=== PATIENT | male | born 1980 | race Caucasian/White ===

== ENCOUNTER → 2018-07-24 | Outpatient (CLI) | payer BC ==
[2016-04-15 07:26] VITALS: BP 134/70
[~2018-07-24] MED LIST: LOSA50TA86 PO; PANT20TA58 PO
--- NOTE | 2018-07-24 18:21 | RAD ---
EXAM: AP, lateral and open-mouth odontoid views of the cervical spine DATE: 07/24/2018 12:00 AM CLINICAL HISTORY: NECK PAIN, HEADACHES COMPARISON: None available. FINDINGS: On the lateral view, the cervical spine is imaged from the skull base to C7. Vertebral body heights are preserved. Trace C4-5, C5-6 intervertebral disc height loss. Mild straightening of the normal cervical lordosis. No spondylolisthesis. There is no offset of the lateral masses of C1 on C2. Normal predental space. No significant prevertebral soft tissue swelling. IMPRESSION: 1. Mild degenerative changes most prominent at C4-5 and C5-6. 2. Negative acute fracture or subluxation. Electronically signed by: Red Louis MD (07/24/2018 6:17 PM) [facility]
== END | disposition home or self-care (01) ==
LOC: PMG 15:42
PROVIDERS: ATTEND Physician Assistant
DX: M47.892 Other spondylosis, cervical region (principal)
CPT/HCPCS: 72040

== ENCOUNTER → 2019-12-24 | Outpatient (CLI) | payer BC ==
[2016-04-15 07:26] VITALS: BP 134/70
--- NOTE | 2019-12-24 12:22 | RAD ---
Gastric Emptying Study Indication: Chronic, intermitent abdominal pain. GERD Procedure: Anterior and posterior projection static images are obtained over the stomach following oral administration of 2.1 mCi of 99 M technetium sulfur colloid in a solid meal. Time points include an immediate baseline, and 1, 2, 3, and 4 hours post ingestion. Findings: There is progressive emptying of the stomach on sequential images. Percentage retention at... One hour is 52% (normal 34.8-91%). Two hours 45 % (normal 2.7-60%). Three hours 29% (normal 0.5-28%). Four hours 23% (normal 0-10%). Impression: Delayed gastric emptying, grade 2 (moderate): 21?35% retention at 4 h Consensus Recommendations for Gastric Emptying Scintigraphy: A Joint Report of the [place] [employer] and the Society of Nuclear Medicine: J. Nucl. Med. Technol. October 2007 vol. 36 no. 1 44-54 Grading for severity of delayed GE based on the 4-h value: grade 1 (mild): 11?20% retention at 4 h grade 2 (moderate): 21?35% retention at 4 h grade 3 (severe): 36?50% retention at 4 h grade 4 (very severe): >50% retention at 4 h. Electronically signed by: Joao Can MD (12/24/2019 12:19 PM) [id number]
== END | disposition home or self-care (01) ==
LOC: NM 07:22
PROVIDERS: ATTEND Internal Medicine Gastroenterology
DX: K30 Functional dyspepsia (principal); K21.9 Gastro-esophageal reflux disease without esophagitis; I10 Essential (primary) hypertension; F17.200 Nicotine dependence, unspecified, uncomplicated
CPT/HCPCS: 78264; A9541

== ENCOUNTER 2021-01-18 07:51 | Emergency (ER) | payer BC ==
[~2021-01-18] VITALS: Ht 165.1 cm; Wt 100.0 kg
[2021-01-18] MEDS ORDERED: KETOROLAC 60 MG/2 ML VIAL. IM ONE (08:30)
[2021-01-18] MEDS ORDERED: LIDOCAINE (700MG/PATCH) PATCH. TD ONE (08:30)
--- NOTE | 2021-01-18 08:31 | PHYS DOC ---
Past History Past Medical History: GERD, Hypertension, Hypothyroid, Other Additional Past Medical Histor: SCIATICA Past Surgical History: Appendectomy Smoking: Non-smoker Additional Smoking Information: VAPE NICOTINE Alcohol Use: Occasionally Drug Use: None Adult General Chief Complaint Chief Complaint: BACK PAIN OR INJURY [facility] HPI Patient is a 40-year-old male who presents to the emergency room complaining of left-sided sciatica. Patient states he does have a history of sciatica and at some point did see a physician for this. He states that they recommend doing physical therapy which he did complete. He states that he also got some cortiso ne shots which he did not feel like helped. He states that pain did get better for quite some time but then over the last year is progressively gotten worse. He did have a fall yesterday which seemed to make his pain significantly worse. He states he does get intermittent numbness in his leg which he has had for quite some time. He states he has a known bulging disc. He denies any bowel or bladder incontinence or retention. He has not had any fevers. Review of Systems Review of Systems Complete ROS is negative unless otherwise documented in HPI Current Medications Current Medications Current Medications Medications (Trade) Dose Ordered Sig/Lyubov Start Time Stop Time Status Last Admin Dose Admin Ketorolac Tromethamine (Toradol Im) 60 mg 1X ONCE 01/18/21 08:30 01/18/21 08:31 UNV Lidocaine (Lidoderm) 1 patch DAILY 01/18/21 09:00 UNV Miscellaneous (Lidoderm Patch Removal) 1 ea QHS 01/18/21 21:00 UNV Allergies Allergies Allergies Coded Allergies Type Severity Reaction Last Updated Verified No Known Drug Allergies 07/26/13 No Physical Exam Physical Exam General: Awake, alert, NAD. Well Nourished, well hydrated. Cooperative HEENT: Atraumatic, EOMI, PERRL, airway patent, moist oral mucosa Neck: Supple, trachea midline Respiratory: CTA bilaterally, normal effort, no wheezing/crackles CV: RRR, no murmur, cap refill <2 GI: Soft, nondistended, nontender, no masses MSK: No obvious deformities, lower back pain tenderness Skin: Warm, dry, intact Neuro: A&O x3, speech NL, sensory and motor grossly intact, no focal deficits Psych: Normal affect, normal mood, not suicidal or homicidal Current Patient Data Vital Signs Vital Signs Date Time Temp Pulse Resp B/P (MAP) Pulse Ox O2 Delivery O2 Flow Rate FiO2 01/18/21 07:58 98.1 75 18 135/82 (99) 99 Room Air EKG EKG [] Radiology/Procedures Radiology/Procedures [] Heart Score C/O Chest Pain: N/A Risk Factors: Risk Factors: DM, Current or recent (<one month) smoker, HTN, HLP, family history of CAD, obesity. Risk Scores: Risk Factors: DM, Current or recent (<one month) smoker, HTN, HLP, family history of CAD, obesity. Course & Med Decision Making Course & Med Decision Making Pertinent Labs and Imaging studies reviewed. (See chart for details) Patient is a 40-year-old male who presents to the Emergency room with non- traumatic back pain. Patient denies bowel incontinence, urinary retention, fever, numbness, weakness. On exam, patient does not have a neurologic deficits, saddle anesthesia, gait difficulty, signs of trauma, or wounds near area of pain. Patient does not have a history of cancer or prolonged steroid use. At this time, patient does not have any signs, symptoms, or risk factors of emergent causes of back pain making cauda equina, spinal abscess, transverse myelitis, fractures, and other causes of emergent back pain highly unlikely. CT will be done of the lumbar spine to rule out any new traumatic injury and patient will be treated symptomatically. Patient's test results and vitals while in the ED were fully reviewed and discussed with the patient. Patient is stable and at this time does not need admission to the hospital. We have discussed strict return precautions and the importance of following up with their Primary Care Physician. Patient stated understanding and was given an opportunity to ask any questions. Dragon Disclaimer Dragon Disclaimer This electronic medical record was generated, in whole or in part, using a voice recognition dictation system. Departure Departure: Impression: Primary Impression: Sciatica Additional Impression: Bulging disc Disposition: HOME / SELF CARE / HOMELESS Condition: STABLE Referrals: MARTIN BLANCO (PCP) Patient Instructions: Back Pain, Adult Additional Instructions: Please follow up with Dr Schmidt for your herniated disc Problem Qualifiers MARBELLA MARTINEZ MD Jan 18, 2021 08:31
--- NOTE | 2021-01-18 09:15 | RAD ---
INDICATION: Reason: worsening back pain after trauma / Spl. Instructions: / History: . COMPARISON: None. TECHNIQUE: Axial CT images obtained through the lumbar spine. One or more of the following individualized dose reduction techniques were utilized for this examinat ion: 1. Automated exposure control; 2. Adjustment of the mA and/or kV according to patient size; 3 . Use of iterative reconstruction technique. FINDINGS: No evidence of malalignment. Scattered calcific atherosclerosis. No acute fracture line is seen. There is some degenerative changes of the lumbar spine with early osteophyte formation at the vertebr al body endplates as well as disc protrusion. This includes at L4-5 where there is a disc protrusion and osteophyte formation with ligamentum flavum and facet hypertrophy with associated moderate trefoi l narrowing of the central canal. Prominent epidural fat at the L5 and sacral region with small size of the thecal sac at this level. IMPRESSION: * No acute fracture or dislocation of lumbar spine. * Degenerative changes are identified. Electronically signed by: Sina Acuna MD (01/18/2021 9:12 AM) [id number]
[2021-01-18] MEDS ORDERED: DEXAMETHASONE SOD PHOS 10 MG/ML VIAL. PO ONE (09:30)
[2021-01-18] MEDS ORDERED: METHOCARBAMOL 500 MG TABLET PO ONE (10:00)
[2021-01-18] MEDS ORDERED: ACETAMINOPHEN 500 MG TABLET PO ONE (10:45)
[2021-01-18] MEDS ORDERED: METH-560 PO (10:49)
[2021-01-18 10:51] VITALS: BP 140/87
[2021-01-18] MEDS ORDERED: CAPSAICIN 0.025% TOPICAL CREAM 60GM TUBE. TP ONE (11:00)
[2021-01-18] MEDS ORDERED: PATCH REMOVAL. MC SCH (21:00)
== END 2021-01-18 11:02 | disposition home or self-care (01) ==
LOC: ER 07:51
DX: M54.32 Sciatica, left side (principal); R20.0 Anesthesia of skin; M51.86 Other intervertebral disc disorders, lumbar region; K21.9 Gastro-esophageal reflux disease without esophagitis; I10 Essential (primary) hypertension; E03.9 Hypothyroidism, unspecified; F17.200 Nicotine dependence, unspecified, uncomplicated; Z90.89 Acquired absence of other organs
CPT/HCPCS: 72131; 96372; 99284; J1100; J1885